=== PATIENT | male | born 2000 | race American Indian/Alaskan Native ===

== ENCOUNTER 2021-09-12 16:08 | Emergency (ER) | payer SELFPAY ==
[2021-09-12 21:43] LABS: BUN/Creatinine Ratio 14; Blood Urea Nitrogen 15 mg/dL (9-20); Calcium 9.8 mg/dL (8.4-10.2); Hematocrit 48.9 % (35.5-45.6); Hemolysis Index 13; Mean Corpuscular HGB Conc 33 % (32-34); Mean Corpuscular Volume 92 fl (84-94); Platelet Count 190 K/mm3 (140-440); Red Blood Count 5.34 M/mm3 (3.65-5.03); Red Cell Distribution Width 13.1 % (13.2-15.2)
--- NOTE | 2021-09-12 23:02 | Emergency Department Report ---
HPI - General Chief Complaint: Psych Time Seen by Provider: 09/12/21 21:05 - HPI HPI: 20-year-old -[place] male presents to the emergency department with a complaint of suicidal ideations and an attempt in which he took about 8-10 800 mg ibuprofen, the day before yesterday. He says that he has a history of ADHD but denies any other psychiatric history. The patient does not appear to have been in our emergency department previously. I explained to the patient that, due to his suicidal ideations and attempt, he will be placed on a 1013. He asked "how long will I be here?" When I explained the process that he would be evaluated daily by the psychiatric team, the patient suddenly became agitated and irate. He started yelling about how someone "lied to me", and then started saying how he was going to "make it difficult for you while I am here." Prior to this the patient had been calm and cooperative. He denies any homicidal ideations or any hallucinations. ED Review of Systems ROS: Stated complaint: THREATING TO HARM HIMSELF Other details as noted in HPI Comment: All other systems reviewed and negative Constitutional: denies: fever Respiratory: denies: cough, shortness of breath Cardiovascular: denies: chest pain, palpitations Gastrointestinal: denies: abdominal pain, vomiting Neurological: denies: headache, weakness Psychiatric: denies: auditory hallucinations, visual hallucinations, homicidal thoughts, suicidal thoughts Physical Exam - Physical Exam Vital Signs: Vital Signs 09/12/21 09/12/21 16:20 20:54 Temperature 98.4 F 987 F H Pulse Rate 66 64 Respiratory 16 20 Rate Blood Pressure 122/79 Blood Pressure 112/61 [Right] O2 Sat by Pulse 100 98 Oximetry Physical Exam: GENERAL: The patient is well-developed well-nourished. HENT: Normocephalic. Atraumatic. Patient has moist mucous membranes. EYES: Extraocular motions are intact. NECK: Supple. Trachea is midline. CHEST/LUNGS: Clear to auscultation. There is no respiratory distress noted. HEART/CARDIOVASCULAR: Regular. There is no tachycardia. There is no murmur. ABDOMEN: Abdomen is soft, nontender. Patient has normal bowel sounds. SKIN: Skin is warm and dry. NEURO: The patient is awake, alert, and oriented. Normal speech. MUSCULOSKELETAL: There is no tenderness or deformity. There is no limitation ra nge of motion. ED Course Vital Signs 09/12/21 09/12/21 16:20 20:54 Temperature 98.4 F 987 F H Pulse Rate 66 64 Respiratory 16 20 Rate Blood Pressure 122/79 Blood Pressure 112/61 [Right] O2 Sat by Pulse 100 98 Oximetry - Reevaluation(s) Reevaluation #1: 09/13/21 00:18 The patient keeps talking about how he was deceived by someone who told him that if he came to the emergency department and claimed suicidal ideations and/or attempt that we would help him with some type of placement as he recently became homeless. I went to try and explained to the patient that he should be open and honest about the reasons why he came into the emergency department, and it might help in the near future with his psychiatric evaluation and whether or not he truly needs inpatient stabilization. However, when I went to speak to him he is seen wrapping a blanket around his neck, drinking his own urine, spitting the urine out on the floor, and then throwing the urinal on the [place]. When asked why he is doing this, the patient says "because you guys want do anything about it." The patient will be medicated as he is now exhibiting signs of aggression, agitation, and at times psychosis. ED Medical Decision Making - Lab Data Result diagrams: 09/12/21 21:12 09/12/21 21:12 Lab Results 09/12/21 09/12/21 09/12/21 Range/Units 21:12 21:12 21:12 WBC 6.4 (4.5-11.0) K/mm3 RBC 5.34 H (3.65-5.03) M/mm3 Hgb 16.0 H (11.8-15.2) gm/dl Hct 48.9 H (35.5-45.6) % MCV 92 (84-94) fl MCH 30 (28-32) pg MCHC 33 (32-34) % RDW 13.1 L (13.2-15.2) % Plt Count 190 (140-440) K/mm3 [place] % (Auto) Insurance Sales Professional Sodium 139 (137-145) mmol/L Potassium 4.2 (3.6-5.0) mmol/L Chloride 102.4 (98-107) mmol/L Carbon Dioxide 25 (22-30) mmol/L Anion Gap 16 mmol/L BUN 15 (9-20) mg/dL Creatinine 1.1 (0.8-1.3) mg/dL Estimated GFR > 60 ml/min BUN/Creatinine Ratio 14 % Glucose 86 (75-100) mg/dL Calcium 9.8 (8.4-10.2) mg/dL Salicylates < 0.3 L (2.8-20.0) mg/dL Acetaminophen (10.0-30.0) ug/mL Plasma/Serum Alcohol (0-0.07) % 09/12/21 09/12/21 Range/Units 21:12 21:12 WBC (4.5-11.0) K/mm3 RBC (3.65-5.03) M/mm3 Hgb (11.8-15.2) gm/dl Hct (35.5-45.6) % MCV (84-94) fl MCH (28-32) pg MCHC (32-34) % RDW (13.2-15.2) % Plt Count (140-440) K/mm3 [place] % (Auto) Sodium (137-145) mmol/L Potassium (3.6-5.0) mmol/L Chloride (98-107) mmol/L Carbon Dioxide (22-30) mmol/L Anion Gap mmol/L BUN (9-20) mg/dL Creatinine (0.8-1.3) mg/dL Estimated GFR ml/min BUN/Creatinine Ratio % Glucose (75-100) mg/dL Calcium (8.4-10.2) mg/dL Salicylates (2.8-20.0) mg/dL Acetaminophen 5.0 L (10.0-30.0) ug/mL Plasma/Serum Alcohol < 0.01 (0-0.07) % - Medical Decision Making This patient presented to the emergency department with initial complaint of suicidal ideations with a suicide attempt by overdose of ibuprofen. He initially told me that the ibuprofen overdose was the day before yesterday. If this is true, there is very little concern for NSAID overdose. The patient was placed on a 1013. At 1 point the patient says that he was actually conned into coming here and was just trying to use the emergency department to find a way to get penitentiary. However, it does appear that there is some level of underlying psychiatric disease as he has exhibited signs of acute psychosis, agitation, aggression and oftentimes is not redirectable. He was seen by the psychiatric balance weigher who agrees with the plan for a 1013 and inpatient stabilization. Patient's labs thus far been mostly unremarkable including CBC, metabolic panel, acetaminophen and salicylate levels and negative blood alcohol. We are still waiting for urinalysis and UDS. However I do not believe that there will be any result from urinalysis or UDS that would preclude the patient from inpatient stabilization. He has medically cleared for psychiatric placement. Critical Care Time: No Critical care attestation.: If time is entered above; I have spent that time in minutes in the direct care of this critically ill patient, excluding procedure time. ED Disposition Clinical Impression: Acute psychosis, Suicidal ideations Disposition: [address] [place] [address] Is pt being admited?: No Condition: Stable Time of Disposition: 01:03
[2021-09-13] MEDS ORDERED: ZIPRASIDONE MESYLATE 20 MG VIAL IM ONE ×2 (00:16→00:17)
[2021-09-13 01:14] LABS: Basophils % (Manual) 0 % (0.0-1.8); Platelet Estimate Consistent w Auto; RBC Morphology Normal; Total Cells Counted 100
[2021-09-13 07:55] LABS: Mucus,Urine 1+ /HPF; RBC,Urine < 1.0 /HPF (0.0-6.0)
[2021-09-13 07:56] LABS: Amphetamine Screen,Urine Negative; Benzodiazepines Screen,Urine Negative; Cocaine Screen,Urine Negative; Methadone Screen,Urine Negative; Opiate Screen,Urine Negative
[2021-09-13 08:04] LABS: Bilirubin,Urine Negative (Negative); Blood,Urine Negative (Negative); Color,Urine Yellow (Yellow)
[2021-09-13 08:20] LABS: Cannabinoid Screen,Urine Positive
[2021-09-13 09:20] VITALS: BP 104/57
--- NOTE | 2021-09-13 11:42 | Consultation ---
History of Present Illness - Reason for Consult Consult date: 09/13/21 Reason for consult: SI - History of Present Psychiatric Illness The patient was seen today. He is calm, cooperative and pleasant. He makes good eye contact. The patient tells me before I start to speak with him that, he is homeless, and had nowhere to go so he took pills. He says "but I really didn't want to hurt myself." The patient says his family is in [place] and he got put out. He says he doesn't have a good relationship with his mother. The patient denies any psych history outside of ADHD. He denies SI/HI. He says "I told you I didn't have nowhere to go." He says "but I have a showcase trimmer and she told me that when I leave here she has me a place to go." I asked the patient if he felt depressed, he replies "naw, I don't feel depressed at all." He then asks me to describe being depressed. I did, and the patient replied "naw, but I do have stuff going on." I asked the patient if he felt any fear of going home. He replies "no, I'm good. Just didn't have nowhere to go." He says he would like therapy. I discussed with the patient medication if was having any of the problems we discussed. He says "I would just like to talk to somebody." He denies any illicit drug use outside of THC. The patient denies alcohol use or nicotine use. REVIEW OF SYSTEMS Constitutional: Negative for weight loss ENT: Negative for stridor Respiratory: Negative for cough or hemoptysis All other systems reviewed and are negative MENTAL STATUS EXAMINATION General Appearance and Behavior: Age appropriate, good hygiene, wearing appropriate clothes, calm and cooperative, pleasant Cooperation: Participating/engaged Psychomotor Behavior: normal Mood: good, not depressed Affect and affective range: congruent with mood Thought Process: goal directed Thought Content: None Speech: Normal volume, Regular rate and rhythm, Suicidal Ideation: Denies Homicidal Ideation: Denies Hallucinations: Denies Delusions: None elicited Impulse Control: Limited Insight and Judgment: Limited insight and judgment, Memory: Limited Attention: Normal Orientation: Alert, oriented Assessment Treatment Plan d/c 1013 No scripts at this time PSYCHOTHERAPY: Supportive psychotherapy provided MEDICAL: Per primary team DELIRIUM PRECAUTIONS: Please re-orient patient frequently, keep lights on during the day, and minimize benzodiazepines and opiates as these medications could worsen patient's confusion. DIRECTOR INFORMATION SECURITY: Per medical team DISPOSITION: Do not recommend acute psychiatric inpatient at this time The automatic bow maker machine tender to provide all necessary outpatient resources, including [facility] Please provide the patient with a transportation pass if needed Will sign off. Thanks. Case staffed with Dr. Brantley Medications and Allergies Allergies Allergy/AdvReac Type Severity Reaction Status Date / Time No Known Allergies Allergy Verified 09/12/21 16:21 Mental Status Exam - Vital signs Last Vital Signs Temp 98.2 F 09/13/21 09:19 Pulse 78 09/13/21 09:19 Resp 18 09/13/21 09:19 BP 104/57 09/13/21 09:19 Pulse Ox 98 09/13/21 10:24 Results Result Diagrams: 09/12/21 21:12 09/12/21 21:12 Abnormal lab results 09/12/21 09/12/21 09/12/21 Range/Units 21:12 21:12 21:12 RBC 5.34 H (3.65-5.03) M/mm3 Hgb 16.0 H (11.8-15.2) gm/dl Hct 48.9 H (35.5-45.6) % RDW 13.1 L (13.2-15.2) % Lymphocytes % (Manual) 43.0 H (13.4-35.0) % Salicylates < 0.3 L (2.8-20.0) mg/dL Acetaminophen 5.0 L (10.0-30.0) ug/mL All other labs normal.
== END 2021-09-13 14:41 | disposition home or self-care (01) ==
LOC: ED 16:08
DX: F23 Brief psychotic disorder (principal); R45.851 Suicidal ideations; Z20.822 Contact with and (suspected) exposure to COVID-19
CPT/HCPCS: 36415; 80048; 80307; 81001; 85007; 85025; 99284; J3486; U0003; 80320; G0480